=== PATIENT | male | born 1985 | race Two or more races ===

== ENCOUNTER 2024-08-14 15:51 | Emergency (ER) | payer MEDICAID, SELFPAY ==
[2024-08-14 16:09] VITALS: BP 152/99; PULSE 88; RESP 18; TEMP 36.9; O2SAT 99; BMI 33.7
--- NOTE | 2024-08-14 16:14 | XR_ITS ---
Examination: CT cervical spine without contrast 2-D sagittal reconstructions 2-D coronal reconstructions 3-D reconstructions. Exam date and time:August 14, 2024 1712 hours INDICATIONS: Onset right-sided neck pain today CTDI:vol (mGy) 16.9 DLP: (mGycm) 397 Technique: Multiple 2 mm axial sections of the cervical spine have been obtained. The coronal and sagittal reconstructions have been obtained. 3-D reconstructions have been obtained. Low dose protocols were performed. One or more of the following dose reduction techniques were used; automated exposure control, adjustment of the mA and/or KV according to patient size, use of iterative reconstruction technique. Findings: Axial sections demonstrate intact base of the skull. C1 exhibit satisfactory relationship to the odontoid. No acute cervical vertebral body fracture seen. Alignment posterior spinous processes satisfactory. Mild cervical dextroscoliosis Impression: No acute cervical fracture. No focal cervical disc protrusion or neural foraminal stenosis If symptoms persist, consider MRI cervical spine without contrast followed
[2024-08-14] MEDS: KETOROLAC INJ 60 MG/2 ML VIAL 30 MG IM (17:02)
--- NOTE | 2024-08-14 17:05 | PD.EDRME ---
Rapid Medical Screening Exam E Arrival date/time: 08/14/24 15:51 39-year-old male with no known medical history presents to the emergency room with a chief complaint of neck pain x 2 hours. Patient states he was looking down earlier today and while doing so felt a pop in his neck. Since that event he has had tenderness and pain in the limited range of motion. I have greeted and performed a focused initial assessment of this patient. A comprehensive ED assessment and evaluation of the patient, analysis of all test results, and completion of the medical decision making process will be conducted by additional ED providers. Chief Complaint: Neck Pain/Injury Time Seen by Provider: 08/14/24 16:02 Vital signs: Vital Signs Temperature 98.5 F 08/14/24 16:09 Pulse Rate 88 08/14/24 16:09 Respiratory Rate 18 08/14/24 16:09 Blood Pressure 152/99 H 08/14/24 16:09 Pulse Oximetry (%) 99 08/14/24 16:09 Oxygen Delivery Method Room Air 08/14/24 16:09 Vital signs reviewed by provider: Yes
--- NOTE | 2024-08-14 19:40 | PD.EDNECK ---
ED Neck Injury Pain RME/HPI General Chief Complaint: Neck Pain/Injury Stated Complaint: NECK PAIN, NAUSEA, DIZZINIESS Time Seen by Provider: 08/14/24 16:02 Arrival date/time: 08/14/24 15:51 RME / HPI RME / HPI Narrative: 39-year-old male with no known medical history presents to the emergency room with a chief complaint of neck pain x 2 hours. Patient states he was looking down earlier today and while doing so felt a pop in his neck. Since that event he has had tenderness and pain in the limited range of motion. Patient denies any upper or lower extremity weakness. Related Data Previous Rx's ?Medication ?Instructions ?Recorded naproxen 500 mg tablet 500 mg PO BID PRN pain #20 tabs 02/15/18 cyclobenzaprine 10 mg tablet 10 mg PO TID PRN muscle spasm #30 08/14/24 tabs ketorolac 10 mg tablet 10 mg PO Q8H PRN pain 5 days #20 08/14/24 tabs Allergies Allergy/AdvReac Type Severity Reaction Status Date / Time No Known Allergies Allergy Verified 02/15/18 10:20 Review of Systems Review of Systems Narrative Review of Systems: Review of system reviewed and within normal limits except mentioned in HPI ED Exam Narrative Physical exam: VITAL SIGNS: Reviewed. GENERAL APPEARANCE: Alert and interactive, follows commands, no acute distress, HEAD AND FACE: Non-traumatic. ENT: PERRL, pink conjunctivitis, eyelid no trauma, Mucous membrane moist. NECK: Supple, posterior neck tenderness, no nuchal rigidity. CHEST: No tenderness, no crepitus, no paradoxical movement, no retractions. LUNGS: Clear, well ventilated, symmetric, no rales, no wheezing, no ronchi, no stridor, good breath sounds bilaterally. HEART: Regular rate, regular rhythm, no murmur, no gallops. ABDOMEN: Soft, positive bowel sounds, nondistended, no guarding, nontender, no rebound, no masses, RECTAL: Deferred. GENITAL: Deferred. NEUROLOGICAL: Gross motor function intact sensory function intact, Appropriate for age. MUSCULOSKELETAL: low back nontender, full range of motion. EXTREMITIES: Nontender, full range of motion. SKIN: Color pink, dry, no rash, no lacerations, no abrasions, no contusions. LYMPHATICS: Deferred. Course Quality Measures none Orders Category Date Time Status CT cervical spine wo con Stat Exams 08/14/24 16:14 Completed CYCLObenzaPRINE [Flexeril] Med 08/14/24 19:38 Once 10 mg PO X1 ONE HYDROcodone/APAP 10/325 [[place] 10/325] Med 08/14/24 19:38 Once 1 tab PO X1 ONE Ketorolac Inj [Toradol Inj] Med 08/14/24 16:18 Discontinued 30 mg IM X1 ONE Vital Signs Vital signs: Vital Signs Temperature 98.5 F 08/14/24 16:09 Pulse Rate 88 08/14/24 16:09 Respiratory Rate 18 08/14/24 16:09 Blood Pressure 152/99 H 08/14/24 16:09 Pulse Oximetry (%) 99 08/14/24 16:09 Oxygen Delivery Method Room Air 08/14/24 16:09 Neck Pain MDM Narrative MDM Narrative:: 39-year-old male with no known medical history presents to the emergency room with a chief complaint of neck pain x 2 hours. Patient states he was looking down earlier today and while doing so felt a pop in his neck. Since that event he has had tenderness and pain in the limited range of motion. Patient denies any upper or lower extremity weakness. CT scan of the cervical spine came back unremarkable. Results discussed with the patient. Patient was advised to remove the soft collar that he is wearing right now. Was given Toradol, [place] and Flexeril with significant provide of neck pain. Patient appears nontoxic and hemodynamically stable. Patient discharged home and instructed to follow-up with primary care provider in 24 to 48 hours. Instructed to return to the emergency department immediately if worsening of symptoms Patient data External records reviewed:: None Clinical information provided by:: patient Social determinants that could affect healthcare access:: none Patient has the following chronic illnesses:: None How is presenting disease/condition affected by chronic disease/condition?: no chronic disease Evaluation data The following diagnostics were reviewed and interpreted by me:: lab results and radiology exam(s) Lab and/or radiology exams considered but not ordered:: None Interpretation Summary: See results MDM Medications / Prescriptions Medications or Prescriptions considered but not ordered:: None Medication administrations:: Medication Administration History Hydrocodone Bitart/Acetaminophen (Hydrocodone/[place]ap 10/325 Tab) 1 tab PO X1 ONE Stop: 08/14/24 19:39 Cyclobenzaprine HCl (Cyclobenzaprine 5 Mg Tablet) 10 mg PO X1 ONE Stop: 08/14/24 19:39 Discontinued Medications Ketorolac Tromethamine (Ketorolac Inj 60 Mg/2 Ml Vial) 30 mg IM X1 ONE Stop: 08/14/24 16:19 Last Admin: 08/14/24 17:02 Dose: 30 mg Documented By: WAN Toradol [place] and Flexeril Consultations Consultation(s) initiated? (list below): No Diagnosis Neck Differential Diagnosis: closed subluxation of cervical spine, cervical spondylosis and strain of neck muscle Most likely diagnosis given after review of the tests above:: Cervical strain Admission Indicated Admission indicated?: not indicated Admission Request Was there a request for admission?: No Disposition Plan Disposition Plan: Discharge Discharge Attestation Discharge Attestation: The patient was given an opportunity to ask questions and understood the discharge instructions. Discharge instructions specifically effects, indications for sooner follow up or return to the emergency department, and the expected course of current diagnosis. Patient condition: Stable Discharge Plan Plan Patient Disposition: HOME (Self Care) Discharge Disposition comment: Stable Prescriptions/Referrals Prescriptions/Med Rec: New cyclobenzaprine 10 mg tablet 10 mg PO TID PRN (Reason: muscle spasm) Qty: 30 0RF ketorolac 10 mg tablet 10 mg PO Q8H PRN (Reason: pain) 5 Days Qty: 20 0RF No Action naproxen 500 mg tablet 500 mg PO BID PRN (Reason: pain) Qty: 20 0RF Referrals: Hui Alejandra ACCOUNTING INSTRUCTOR [Primary Care Provider] - In 1 week Problem List Clinical Impression: Strain of neck muscle Patient/Caregiver Discharge Instructions Discharge Activity: activity as tolerated Education Materials: ED Neck Sprain or Strain Additional Instructions: Thank you for the opportunity for serving you today. You are stable for discharged . You are advised to: Follow-up with your PCP in 1 to 2 days Return to ED for worsening of symptoms Increase oral fluids Take medication as prescribed Print Language: Maltese Stand Alone Forms: [employer] Award Info., Patient Portal Info Letter
[2024-08-14] MEDS: HYDROcodone/APAP 10/325 TAB PO (20:31)
[2024-08-14] MEDS: CYCLObenzaPRINE 5 MG TABLET 10 MG PO (20:31)
== END 2024-08-14 20:33 | disposition home or self-care (01) ==
PROVIDERS: Emergency Provider Family Medicine; PCP Nurse Practitioner Family
DX: S16.1XXA Strain of muscle, fascia and tendon at neck level, initial encounter (principal); X58.XXXA Exposure to other specified factors, initial encounter
CPT/HCPCS: 72125; 96372; 99284; J1885; A9270